=== PATIENT | female | born 1935 | race Caucasian/White ===

== ENCOUNTER 2016-06-04 08:39 | Day surgery (SDC) | payer MEDICARE, OTHER ==
[~2016-06-04] VITALS: Ht 162.6 cm; Wt 83.9 kg
--- NOTE | 2016-06-04 07:27 | PCM.HPANE ---
Patient Data Surgeon Admitting Provider: Attending Provider:Nash Romero MD Primary Care Physician:Melia Gavin ND Other Provider:[place] Anesthesia Reason for Visit Dysphagia Ht/WT & BMI Body Mass Index Allergies Coded Allergies: Influenza Virus Vaccines (Verified Allergy, Severe, SEVERE ARM SWELLING LASTING 1 MO., 04/28/15) Nitrate (Verified Allergy, Severe, NAUSEA, RASH, SOB, 04/28/15) barium sulfate (Verified Allergy, Severe, LIP SWELLS, 04/28/15) nitrofurantoin (Verified Allergy, Severe, NAUSEA, RASH, SOB, 04/28/15) pantoprazole sodium (Verified Allergy, Severe, Nausea, 04/28/15) acetaminophen (Verified Allergy, Intermediate, heart races, 04/28/15) lovastatin (Verified Allergy, Intermediate, dizziness, 04/28/15) oxymetazoline HCl (Verified Allergy, Intermediate, races heart, 04/28/15) pseudoephedrine sulfate (Verified Allergy, Intermediate, races heart, 04/28) Cephalosporins (Verified Allergy, Unknown, WAS TOLD TO STOP TAKING, UNK REACTION, 04/28/15) Quinolones (Verified Allergy, Unknown, WAS TOLD TO STOP TAKING, 04/28/15) amoxicillin (Verified Allergy, Unknown, Nausea,Vomiting,Diarrhea, 06/02/16) azithromycin (Verified Allergy, Unknown, 06/02/16) cimetidine (Verified Allergy, Unknown, 06/02/16) ciprofloxacin (Verified Allergy, Unknown, 06/02/16) erythromycin base (Verified Allergy, Unknown, 06/02/16) fenofibrate (Verified Allergy, Unknown, Dizziness, 06/02/16) levofloxacin (Verified Allergy, Unknown, 06/02/16) minocycline (Verified Allergy, Unknown, 06/02/16) niacin (Verified Allergy, Unknown, Dizziness, 06/02/16) omeprazole (Verified Allergy, Unknown, 06/02/16) oxymetazoline (Verified Allergy, Unknown, 06/02/16) oxytetracycline (Verified Allergy, Unknown, 06/02/16) ranitidine (Verified Allergy, Unknown, 06/02/16) tetracycline (Verified Allergy, Unknown, WAS TOLD TO STOP TAKING DOXY, ) tolterodine (Verified Allergy, Unknown, 06/02/16) Estrogens (Verified Adverse Reaction, Mild, PAIN IN TEMPLES, 04/28/15) erythromycin ethylsuccinate (Verified Adverse Reaction, Mild, SEV. GI UPSET, 04/28/15) hydrocodone (Verified Adverse Reaction, Mild, SEV. NAUSEA AND DIZZINESS, ) ibuprofen (Verified Adverse Reaction, Mild, RAPID HR, 04/28/15) lansoprazole (Verified Adverse Reaction, Mild, SEV. DIARRHEA, 04/28/15) oxycodone (Verified Adverse Reaction, Mild, SEV. NAUSEA AND DIZZINESS, ) sucralfate (Verified Adverse Reaction, Mild, RAPID HEART, 04/28/15) metronidazole (Verified Adverse Reaction, Unknown, DIARRHEA AND SEVERE RUBI , 04/28/15) DIARRHEA & SEVERE HEADACHE Uncoded Allergies: CIMETIDINE (Generic Allergy) (Allergy, Unknown, Y, 11/21/04) NAUSEA/RACING HEART FAMOTIDINE (Generic Allergy) (Allergy, Unknown, Y, 11/21/04) H-2 ANTAGONISTS (Ingr Allergy) (Allergy, Unknown, Y, 11/21/04) LATEX (Ingr Allergy) (Allergy, Unknown, Y, 11/21/04) SULFA (Allergy, Unknown, WAS TOLD TO STOP TAKING, 02/05/09) TO MANY TO LIST (Allergy, Unknown, 11/21/04) Past Anesthesia History Anesthesia History: Positive for:: Fam Anesthesia Reaction (SISTERS AND MOTHER GET VERY ILL), Denies:: Abnormal Airway, Anesthesia Reactions, Difficult Intubation, Fam Malignant Hypertherm, Malignant Hyperthermia Diabetes History Hx Diabetes?: No MRSA MRSA: No Medications Reported Medications [Phytoprofen] No Conflict Check2 Capsule PO DAILY 06/04/16 [Natrokinase] No Conflict Iajsb309 Mg PO DAILY PRN COAGULATION 06/04/16 Chromium Amino Acid Chelate (Chromium)400 Mcg Ldvsbk138 Mcg PO 06/04/16 [Blue Alo] No Conflict Check1-2 Capsule PO 06/04/16 Benzoca/Res/Aloe/Vit E/Vit A&D (Vagisil Cream)28 Gm Cream..g.28 Gm TP 06/04/16 Estriol 100 Gm Evouer824 Gm MC 06/04/16 [Gasalia] No Conflict Check2 Tablet PO 06/04/16 Bacillus Coagulans (Probiotic)10 Billion Cell Capsule.dr1 Each PO DAILY 06/02/16 Ascorbic Acid-Expunged Drug, Do Not Renew! (Vitamin C-Expunged Drug, Do Not Renew!)500 Mg Tablet1,000 Mg PO DAILY 01/10/13 Cyanocobalamin-Expunged Drug, Do Not Renew! (Vitamin Z-05-Ulgkdxfz Drug, Do Not Renew!)500 Mcg Tablet1,000 Mcg PO 2D 01/10/13 B.ani/L.aci/L.tyler/L.plan/L.jacqui (Probiotic Formula Capsule)1 Each Capsule1 Each PO NO SIG 01/10/13 Papain (Papaya)100 Mg Ylswms771 Mg PO DAILY 01/10/13 Ubidecarenone (Coenzyme Q10)100 Mg Kzjugt774 Mg PO DAILY 01/10/13 Celery Seed Oil 500 Ml Oil Ml UD 01/10/13 Calcium Carbonate/Mag Hydrox (Antacid Chewable Tablet)1 Each Tab.chew1 Each PO DAILY CALCIUM 1200MG / MAG 500MG 01/10/13 THYROID-Expunged Drug, Do Not Renew! 30 Mg Tab75 Mg PO DAILY 01/10/13 Red Yeast Rice 600 Mg Xzfzcr499 Mg PO BID 05/11/11 Ergocalciferol-Expunged Drug, Do Not Renew! (Vitamin D-Expunged Drug, Do Not Renew!)400 Unit Guzacbn984 Unit PO DAILY Ref 0 02/20/09 Multivitamins-Expunged Drug, Do Not Renew! 1 Each Tab.chew1 Each PO DAILYWM Ref 0 02/19/09 Folic Acid-Expunged Drug, Do Not Renew! 0.4 Mg Tablet0.4 Mg PO Every other day Ref 0 02/19/09 Discontinued Reported Medications [Estrogenic 2MG/Ml] No Conflict Check2 Mg UD 01/10/13 Chromium Picolinate 400 Mcg Gbcmll772 Mcg PO DAILY 05/11/11 [nattokinase] No Conflict Check72 Mg PO BID 01/11/13 Pramoxine Hcl-Expunged Drug, Do Not Renew! (Vagisil-Expunged Drug, Do Not Renew! )1 Each Towelette1 Each TP UD 01/10/13 [Paige Q2] No Conflict Check1 Cell DAILY 01/10/13 [Calcium Carb 150MG] No Conflict Check1,050 Mg PO DAILY 7 TABS (150MG EA) = 1050MG 01/10/13 [Vitamin B12] No Conflict Zyijh484 Mcg PO 2D Ref 0 02/19/09 History History of ENT Problems?: Yes HEENT History: Positive for:: Sinus Problem (frequent sore nose) Denies:: Abnormal Airway Cataracts Difficult Intubation Dysphagia Hearing Problem Hx of Heart Problems?: Yes Cardiovascular History: Positive for:: Chest Pain Edema (during day) Heart Murmur Denies:: AICD Atrial Fibrillation Cardiac Surgery Congestive Heart Failure Hypertension Irregular Heartbeat Pacemaker Thrombophlebitis Valvular Heart Disease Other Cardiac History: history of ablations for Afib. No ME Hx of Respiratory Problem?: Yes Respiratory History: Positive for:: Pneumonia (1989) Denies:: Asthma COPD Chest Surgery Cough Dyspnea Emphysema Hemoptysis Tuberculosis Hx Neurologic Problems?: Yes Neurological History: Positive for:: Dizziness Denies:: Alzheimer's Disease CVA Dementia Headaches Parkinson's Disease Seizures Hx of GI Problems?: Yes Gastrointestinal History: Positive for:: Gastroesphageal Reflux Heartburn Hiatal Hernia Rectal Bleeding Denies:: Cirrhosis Diverticulitis Gastrointestinal Bleeding Hepatitis Hx of Problems?: Yes Genitourinary History: Denies:: HX of Hemodialysis Kidney Stones Urinary Tract Infection HX of Peritoneal Dialysis: No Female Hx: Denies:: Currently Endometriosis Pelvic Inflammatory Problems with Breasts? Hx Musculoskeletal Problems?: Yes Musculoskeletal History: Positive for:: Back Injury (chronic back) Joint Replacement (left knee) Denies:: Musculoskeletal Trauma Hx of Psycho/Social Problems?: No Psycho Social History: Denies:: Anxiety Bipolar Disorder Hx Depression Hx Surgeries?: Yes (bladder removal, knees, abd. hyst, bursa removal right shoulder, hernia rep) Hx Any Other Health Problems?: No Other History: Positive for:: Cancer (bladder) Hospitalization Thyroid Disease Denies:: Endocrine Disease History Blood Transfusions: Positive for:: Blood Transfusions Denies:: Blood Transfuse Reaction Hx Diabetes: No Hx Alcohol Use: NoHx Substance Use: No Smoking Status: Former Smoker Have You Smoked inLast 12 mo: No Stop/Bang Risk Assessment Category Category 1A: Patient has history of documented sleep apnea, and HAS NOT received any narcotic, sedative or anesthesia administration during this stay. Category 1B: Patient has history of documented sleep apnea, and HAS received any narcotic , sedative or anesthesia administration during this stay Category 2: Patient has SUSPECTED Obstructive Sleep Apnea, and HAS received any narcotic , sedative or anesthesia administration during this stay. Category 3: Patient has SUSPECTED Obstructive Sleep Apnea and HAS NOT received narcotic, sedative or anesthesia administration during this stay. Category 4: Outpatient in Procedural Areas with known sleep apnea or who screen positive for High Risk via the STOP/BANG questionnaire. Exam Exam General Appearance: Alert, Oriented X3, Cooperative, No Acute Distress HEENT/AIRWAY: MP 2 Lungs: Clear to Auscultation, Normal Air Movement Heart: Exam Unremarkable, Regular Rate/Rhythm, No Murmurs/Rubs/Gallops Plan Impression Patient chart reviewed, patient interviewed and anesthestic plan with risks, benefits, and alternatives discussed, and informed consent obtained. ASA Physical Status: ASA2 Mod Systemic Disease Anesthetic Plan: MAC Bene/Risks/Altern/Consents: Yes HP Complete Prior to Induction: Yes Other vast number ofr allergies non anesthesia specific. No trouble with anesthetics in the past. Her sister and mother have had unspecified "difficulties" in the distant past Chalo Livingston MD Jun 04, 2016 07:27
[~2016-06-04 08:39] MED LIST: ASC500 PO; B.AN1CAP PO; BACI1CAP6 PO; CALC-846 PO; CHRO400T3 PO; CYAN500T PO; ERGO400C PO; FOLI0.4T2 PO; Lactated Ringer's 1,000 ML IV ONE; MULT-64 PO; PAPA100T PO; RED600TA PO; UBID100T7 PO; [UNRECOGNIZED DRUG - CODE]; [UNRECOGNIZED DRUG - CODE] PO; [UNRECOGNIZED DRUG - OTHER]
[2016-06-04] MEDS ORDERED: Propofol 10,000 mCg/mL 20 mL Inj ONE ×2 (08:40)
[2016-06-04] MEDS ORDERED: fentaNYL-PF 50 mCg/mL 2 mL Inj ONE (08:40)
[2016-06-04] MEDS ORDERED: ESTR100P26 EXT (09:10)
[2016-06-04] MEDS ORDERED: [UNRECOGNIZED DRUG - OTHER] PO (09:10)
[2016-06-04] MEDS ORDERED: [UNRECOGNIZED DRUG - OTHER] PO (09:10)
[2016-06-04] MEDS ORDERED: BENZ28CR2 TP (09:10)
[2016-06-04] MEDS ORDERED: CHRO400T10 PO (09:10)
[2016-06-04] MEDS ORDERED: [UNRECOGNIZED DRUG - OTHER] PO (09:10)
[2016-06-04] MEDS ORDERED: [UNRECOGNIZED DRUG - OTHER] PO (09:10)
[2016-06-04 09:26] VITALS: BP 161/73; PULSE 68; RESP 14; O2SAT 98
[2016-06-04] MEDS ORDERED: Lactated Ringer's 1,000 ML IV SCH (10:12)
--- NOTE | 2016-06-04 10:12 | PCM.ANEP1 ---
Post Anesthesia Phase 1 PACU Phase 1 Assessment Vital Signs Vital Signs Date Time Temp Pulse Resp B/P Pulse Ox O2 Delivery O2 Flow Rate FiO2 06/04/16 09:26 68 14 161/73 98 Room Air Anesthetic Administered: MAC Level of Alertness: Awake, talking CSAAS's with Equal Strength: Yes Pain: No Nausea or Vomiting: No Oxygen Delivery: Nasal Cannula Lungs: Clear to Auscultation, Normal Air Movement Chalo Livingston MD Jun 04, 2016 10:12
--- NOTE | 2016-06-04 10:14 | PCM.ENDEGD ---
EGD Date of Service: Jun 04, 2016 Physician Nash Romero MD Pre Procedure Diagnosis: Dysphagia Post Procedure Dx & Findings: White nodule Procedure Esophagogastroduodenoscopy PROCEDURE IN DETAIL: The patient was placed in left lateral decubitus position. Bite block was placed. Scope lubricated, placed in posterior pharynx, passed through the cricopharyngeus and esophagus, slowly advanced the entire length of the gastric pouch, pylorus was identified, scope passed through the pylorus and descending portion of duodenum, withdrawn in the antrum, retroflexed upon itself for view of fundus and cardia. Scope was then withdrawn through the oropharynx. Esophagus appeared normal with normal mucosa without any ulcer mass or erosion. Z line intact. Z line 38 cm Stomach shows normal rugae folds and mucosa without any ulcer erosion mass. Retroflexion was done. Stomach was easily inflatable and deflated using air. Cardia fundus body antrum and pylorus were visualized. Scope further advanced to the distal duodenum. The duodenum overall appeared normal with normal villous structures and normal rugae folds. However there are several maybe 2-3 mm whitish soft nodule. This was biopsied. Impression 2-3 millimeter whitish nodule status post biopsy. Recommendation Follow up in GI clinic Presedation Assessment Risks and Benefits Informed consent was obtained from the patient after all risks and benefits including but not limited to drug reaction, infection, pain, bleeding, perforation, as well as alternatives were discussed. Patient monitoring Continuous pulse oximetry, cardiac monitoring, blood pressure monitoring, IV access, and oxygen at 2L per nasal cannula. Complications There were no periprocedural complications identified. Post Procedure Plan Post Procedure Recommendations 1. Restrict activities today. 2. Resume normal activities in the morning. 3. Resume medications. 4. GERD behavioral modification: - Avoid fatty, acidic, spicy, large meals - Do not lie down after meals - Do not eat or drink anything for at least 2 1/2 hours before going to bed at night - Discontinue tobacco and alcohol - Decrease or avoid caffeine - Avoid chocolate and mints - Decrease weight - Avoid aspirin and non steroidal anti-inflammatory agents (NSAID) such as Aleve, Advil, Mobic, Naproxen, Ibuprofen, etc 5. Add proton pump inhibitor. Take 30 minutes before 1st meal of the day. 6. Patient informed of normal post procedure side effects as bloating, drowsiness, blood streaking in the stool 7. If gastric biopsy reveal H.pylori, continue with appropriate treatment 8. If small bowel biopsy reveals celiac, continue with appropriate treatment 9. Please don't hesitate to call me with any questions Nash Romero MD Jun 04, 2016 10:14
[2016-06-04] MEDS ORDERED: MetoCLOpramide 5 mg/mL 2 mL Inj IVPUSH PRN (10:15)
[2016-06-04] MEDS ORDERED: Ondansetron 2 mg/mL 2 mL Inj IVPUSH PRN (10:15)
[2016-06-04 10:18] VITALS: BP 121/52; PULSE 70; RESP 10; O2SAT 93
[2016-06-04 10:25] VITALS: BP 121/55; PULSE 75; RESP 16; O2SAT 95
[2016-06-04 10:36] VITALS: BP 140/79; PULSE 69; RESP 14; O2SAT 97
--- NOTE | 2016-06-04 10:36 | PCM.ANEP2 ---
Post Anesthesia Evaluation ASA/CMS Post Anesthesia VS in Patient's Normal Range?: Yes Resp Stable; Airway Patent?: Yes CV Function & Hydration Stable: Yes Mental Status Recovered?: Yes Pain control Satisfactory?: Yes N/V Control Satisfactory?: Yes Chalo Livingston MD Jun 04, 2016 10:36
--- NOTE | 2016-06-05 14:34 | PATH ---
SURGICAL PATHOLOGY Attending Physician:Nash Romero M.D. CASE STATUS: Signed Out PATIENT NAME: PARVIN GOVEA PID: [id number] : 1935 DATE COLLECTED:06/04/2016 15:44 SPECIMEN: Duodenum, Biopsy CLINICAL HISTORY: 1).DUODENAL BIOPSY FINAL DIAGNOSIS: 1.DUODENUM BIOPSY: FOCAL MUCOSAL LYMPHANGIECTASIA. Normal delicate mucosal villi present. Negative for significant inflammation, dysplasia and malignancy. ICD10 code I89.0 GROSS DESCRIPTION: The specimen is received in one formalin filled container labeled with the patient's name, sublabeled "duodenal" and consists of a 0.3 x 0.3 x 0.3 CM portion of tissue which is entirely submitted in one cassette. 06/04/2016 DAC MICRO DESCRIPTION: See diagnosis. ICD-9 CODES: CPT CODES: 1: 32942 Electronically Signed Out William Dillard MD [facility] Pathology [facility] [address], [place] [address] Technical component performed at [facility], [facility] [address], [place], [address]
== END 2016-06-04 23:59 | disposition home or self-care (01) ==
LOC: END 08:39
PROVIDERS: ATTEND Internal Medicine
DX: I89.0 Lymphedema, not elsewhere classified (principal); R13.10 Dysphagia, unspecified; K21.9 Gastro-esophageal reflux disease without esophagitis; K59.00 Constipation, unspecified; I73.9 Peripheral vascular disease, unspecified; I10 Essential (primary) hypertension; E78.5 Hyperlipidemia, unspecified; E03.9 Hypothyroidism, unspecified; M35.00 Sjogren syndrome, unspecified; K57.30 Diverticulosis of large intestine without perforation or abscess without bleeding; Z85.51 Personal history of malignant neoplasm of bladder; Z87.440 Personal history of urinary (tract) infections; Z79.890 Hormone replacement therapy; Z87.891 Personal history of nicotine dependence
CPT/HCPCS: 43239; 88305; J2250; J3010; J7120

== ENCOUNTER 2016-08-13 15:19 | Observation (INO) | payer MEDICARE, OTHER ==
[~2016-08-13] VITALS: Ht 163.8 cm; Wt 85.0 kg
[2016-08-13] VITALS (11 sets, daily range): BP systolic 134–199; BP diastolic 56–96; PULSE 56–98; RESP 15–22; O2SAT 97–100
[~2016-08-13 15:19] MED LIST changes: +BENZ28CR2 TP; +CHRO400T10 PO; -CHRO400T3 PO; +ESTR100P26 EXT; -Lactated Ringer's 1,000 ML IV ONE; -[UNRECOGNIZED DRUG - OTHER]; +[UNRECOGNIZED DRUG - OTHER] PO; +[UNRECOGNIZED DRUG - OTHER] PO; +[UNRECOGNIZED DRUG - OTHER] PO; +[UNRECOGNIZED DRUG - OTHER] PO
--- NOTE | 2016-08-13 16:13 | DRSVH ---
PROCEDURE: X-RAY CHEST, TWO VIEWS ([id number]) INDICATIONS: chest pain TECHNIQUE: 2 views of the chest were acquired. COMPARISON: [facility], CR, CHEST 2VW, 07/08/2012, 14:09. FINDINGS: Surgical changes and devices: None. Lungs and pleura: No pleural effusions or pneumothorax. Lungs are clear. Mediastinum: Mediastinal contours are normal. Heart size is normal. Bones and chest wall: No suspicious bony abnormalities. Soft tissues appear unremarkable. IMPRESSION: No acute cardiopulmonary disease process. Dictated by: Sirena Brar MD, PhD on 08/13/2016 at 16:11 Approved by: Sirena Brar MD, PhD on 08/13/2016 at 16:12
--- NOTE | 2016-08-13 16:33 | ED.REPORT ---
HPI-General Illness Date of Service August 13, 2016 ED Provider: Milton Carter MD Pt is a 81 year old female with a history of SVT s/p ablations, colitis, IBS, duodenal ulcer and GERD presents to the ED with chest discomfort that began one week ago. Associated symptoms include radiating pain to her jaw and left arm, heart palpitations, fatigue, weakness, SOB, nausea and occasional flatulence. She describes the pain as a pressure that is exacerbated by deep breath moves throughout her chest wall. The episodes of discomfort last a few minutes at a time. The pain is occasionally relieved by eating. Patient reports similar symptoms previously. Dr. Szymanski recently performed an endoscopy that revealed an abnormality. She denies any recent episodes of emesis. Nursing Notes Stated Complaint: CHEST PAIN AND HEART FLUTTER Chief Complaint: Chest Pain Nursing Notes Reviewed: Yes Allergies: Coded Allergies: Influenza Virus Vaccines (Verified Allergy, Severe, SEVERE ARM SWELLING LASTING 1 MO., 08/13/16) Nitrate (Verified Allergy, Severe, NAUSEA, RASH, SOB, 08/13/16) barium sulfate (Verified Allergy, Severe, LIP SWELLS, 08/13/16) levofloxacin (Verified Allergy, Severe, c-dif, tendonitis, 08/13/16) nitrofurantoin (Verified Allergy, Severe, NAUSEA, RASH, SOB, 08/13/16) pantoprazole sodium (Verified Allergy, Severe, Nausea, abdominal pain, rash, dizziness, chills, 08/13/16) cimetidine (Verified Allergy, Intermediate, racing heart, nausea, 08/13/16) diltiazem (Verified Allergy, Intermediate, 08/13/16) doxycycline (Verified Allergy, Intermediate, Nausea, palpitations, abdominal pain, chills, 08/13/16) estradiol (Verified Allergy, Intermediate, local reaction, 08/13/16) lovastatin (Verified Allergy, Intermediate, dizziness, 08/13/16) oxymetazoline HCl (Verified Allergy, Intermediate, races heart, 08/13/16) oxytetracycline (Verified Allergy, Intermediate, worsened lesion, 08/13/16) pseudoephedrine sulfate (Verified Allergy, Intermediate, races heart, ) ranitidine (Verified Allergy, Intermediate, nausea, racing heart, 08/13/16) simvastatin (Verified Allergy, Intermediate, dizziness, diarrhea, weakness , sweating, chills, 08/13/16) tolterodine (Verified Allergy, Intermediate, blurred vision, 08/13/16) Penicillins (Verified Allergy, Mild, 1950's anaphylaxis, able to tolerate augmentin, 08/13/16) Cephalosporins (Verified Allergy, Unknown, can take cefalexin, 08/13/16) palpitations Quinolones (Verified Allergy, Unknown, WAS TOLD TO STOP TAKING, 08/13/16) Sulfa (Sulfonamide Antibiotics) (Verified Allergy, Unknown, 08/13/16) amoxicillin (Verified Allergy, Unknown, Nausea,Vomiting,Diarrhea, 08/13/16) azithromycin (Verified Allergy, Unknown, palpitations, h/a, nausea, weakness, 08/13/16) ciprofloxacin (Verified Allergy, Unknown, Rash, 08/13/16) fenofibrate (Verified Allergy, Unknown, Dizziness, 08/13/16) niacin (Verified Allergy, Unknown, Dizziness, diarrhea, sweating, chills, 08/13/16) omeprazole (Verified Allergy, Unknown, Nausea, racing heart, 08/13/16) oxymetazoline (Verified Allergy, Unknown, racing heart, 08/13/16) tetracycline (Verified Allergy, Unknown, WAS TOLD TO STOP TAKING DOXY, ) Estrogens (Verified Adverse Reaction, Mild, PAIN IN TEMPLES, 08/13/16) erythromycin ethylsuccinate (Verified Adverse Reaction, Mild, SEV. GI UPSET, 08/13/16) hydrocodone (Verified Adverse Reaction, Mild, SEV. NAUSEA AND DIZZINESS, ) ibuprofen (Verified Adverse Reaction, Mild, RAPID HR, 08/13/16) lansoprazole (Verified Adverse Reaction, Mild, SEV. DIARRHEA, 08/13/16) oxycodone (Verified Adverse Reaction, Mild, SEV. NAUSEA AND DIZZINESS, 08/13) sucralfate (Verified Adverse Reaction, Mild, RAPID HEART, 08/13/16) metronidazole (Verified Adverse Reaction, Unknown, DIARRHEA AND SEVERE RUBI , 08/13/16) DIARRHEA & SEVERE HEADACHE minocycline (Verified Adverse Reaction, Unknown, tinnitus, nightmares, 08/13) Uncoded Allergies: CIMETIDINE (Generic Allergy) (Allergy, Unknown, Y, 11/21/04) NAUSEA/RACING HEART FAMOTIDINE (Generic Allergy) (Allergy, Unknown, Y, 11/21/04) H-2 ANTAGONISTS (Ingr Allergy) (Allergy, Unknown, Y, 11/21/04) LATEX (Ingr Allergy) (Allergy, Unknown, Y, 11/21/04) SULFA (Allergy, Unknown, WAS TOLD TO STOP TAKING, 02/05/09) TO MANY TO LIST (Allergy, Unknown, 11/21/04) Scheduled ([estriol/estrodiol]) 0.5 ML EXT DAILY ([nattokinase]) 236 MG PO DAILY Ascorbic Acid (Vitamin C) 1,000 Mg Tab.chew 1,000 MG PO DAILY Bacillus Coagulans (Probiotic) 10 Billion Cell Capsule.dr 1 EACH PO DAILY Calcium Carbonate (Calcium) 600 Mg Tablet 750 MG PO DAILY Cholecalciferol (Vitamin D3) (Vitamin D3) 2,000 Unit Capsule 2,000 UNIT PO DAILY Cholecalciferol (Vitamin D3) (Vitamin D3) 4,000 Unit Capsule 4,000 UNIT PO DAILY Chromium Picolinate (Chromium Picolinate) 200 Mcg Tablet 200 MCG PO DAILY Cyanocobalamin (Vitamin B-12) (Vitamin B-12) 1,000 Mcg Tablet 1,000 MCG PO Q2DAY Estriol (Estriol) 100 Gm Powder 1,000 GM EXT 2xweekly compound in cream Multivitamin (Once Daily) 1 Each Tablet 1 EACH PO DAILY Thyroid,Pork (Thyroid) 25 Gm Powder 75 MG PO DAILY Ubidecarenone/Vit E Acetate (Co Q-10 100 mg Softgel) 1 Each Capsule 1 EACH PO DAILY Scheduled PRN Benzoca/Res/Aloe/Vit E/Vit A&D (Vagisil Cream) 28 Gm Cream..g. 1 APPLIC EXT DIRECTED PRN PRN For Itching Miscellaneous Medications Benzoca/Res/Aloe/Vit E/Vit A&D (Vagisil Cream) 28 Gm Cream..g. 28 GM TP Chromium Amino Acid Chelate (Chromium) 400 Mcg Tablet 200 MCG PO General Time Seen by MD: 16:24 Chief Complaint Chest pain Hx Obtained From: Patient Arrived By: Walk-in Sudden in Onset?: No Onset Occurred: 1 week ago Symptom Duration: Intermittent Location: : Chest Quality: Pressure Radiation: : Arm left: Jaw Severity: Current: Mild Severity: Maximum: Moderate Associated with: Reports: Chest pain, Nausea, Weakness, Denies: Vomiting Pertinent Negative: Pt denies other symptoms Recent Healthcare: No recent hospitalization, Recent doctor visit Past Medical History Past Medical History colitis, duodenal ulcer, IBS, hiatal hernia, GERD, arthritis, chronic back pain, bladder cancer (bladder removed) Past Surgical History ostomy, L knee replacement, bladder removal, knees, hysterectomy, bursa removal R shoulder, hernia repair Smoking History Former Smoker Social History Other Social History: Good social support, Local resident Ambulatory Status Independent Review of Systems flatulence Full Review of Systems Constitutional: Reports: Fatigue, Weakness - generalized Respiratory: Reports: Shortness of breath Cardiovascular: Reports: Chest pain, Palpitations GI: Reports: Nausea, Denies: Vomiting Complete sys rev & neg: except as marked. Physical Exam Vital Signs Vital Signs Date Time Temp Pulse Resp B/P Pulse Ox O2 Delivery O2 Flow Rate FiO2 08/13/16 19:50 70 15 150/96 100 Nasal Cannula 2 08/13/16 18:34 77 22 148/76 100 Room Air 08/13/16 17:24 56 16 134/89 100 08/13/16 15:24 36.2 98 16 187/91 98 Initial VS: Reviewed Head / Eyes: Atraumatic, Normocephalic, PERRL Neck: Supple, Non-tender, Full range of motion Extremities: Vascular intact, Neuro intact, No swelling (No calf swelling) , No tenderness (No calf tenderness) Skin: Warm, Dry, No cyanosis Neurologic: Alert, Oriented, Nonfocal Psychiatric: Mood/affect normal, Behavior normal, Normal thought content ENT: Atraumatic, Airway patent, Mucous membranes moist, Pharynx NL Respiratory / Chest: Atraumatic, Breath sounds NL, Breath sounds = bilat, No respiratory distress Cardiovascular: Heart rate NL, Regular rhythm, Heart sounds NL, No gallop, No murmurs, No rubs Abdomen: Atraumatic, Soft, No guarding, No rebound Tenderness/Guarding/Rebound: Positive: Tender epigastric ABDOMEN: No rigidity Interpretation & Diagnostics Normal KARTHIK scan in 2011 Lab Results Interpretation Result Diagram: 08/13/16 1625 08/13/16 1625 Test 08/13/16 16:25 White Blood Count 6.9th/mm3 (3.8-10.1) Red Blood Count 3.89mil/mm3 (3.90-5.20) Hemoglobin 12.2g/dL (12.0-15.6) Hematocrit 37.8% (35.0-46.0) Mean Corpuscular Volume 97.2fL (81-100) Mean Corpuscular Hemoglobin 31.4pg (27.0-35.0) Mean Corpuscular Hemoglobin Concent 32.3% (32.0-37.0) Red Cell Distribution Width 13.3% (12.3-15.4) Platelet Count 278bil/L (150-400) Neutrophils (%) (Auto) 71.8% (40-74) Lymphocytes (%) (Auto) 18.8% (14-46) Monocytes (%) (Auto) 7.6% (4-12) Eosinophils (%) (Auto) 1.3% (0-5) Basophils (%) (Auto) 0.4% (0-3) Hold Purple Top Tube Received (Received) Hold Blue Top Tube Received (Received) Sodium Level 141mEq/L (134-144) Potassium Level 3.7mEq/L (3.5-5.2) Chloride Level 101mEq/L (97-108) Carbon Dioxide Level 25mmol/L (18-29) Blood Urea Nitrogen 18mg/dL (8-27) Creatinine 0.77mg/dL (0.57-1.00) Estimat Glomerular Filtration Rate 104mL/min (>59) Glucose Level 99mg/dL (60-99) Calcium Level 9.8mg/dL (8.5-10.1) Magnesium Level 2.3mg/dL (1.6-2.6) Total Bilirubin 0.5mg/dL (0.0-1.2) Aspartate Amino Transf (AST/SGOT) 19U/L (0-50) Alanine Aminotransferase (ALT/SGPT) 16U/L (0-32) Alkaline Phosphatase 71U/L (25-165) Troponin T < 0.010ug/L (0.0-0.011) Total Protein 7.2g/dL (6.4-8.4) Albumin 4.2g/dL (3.4-5.0) Lipase 29U/L (13-60) Hold Bradford Top Tube Received (Received) ECG Interpretation ECG Interpretation: EKG sinus rhythm 72 Left bundle branch block No acute ST segment changes Compared 12/07 2015 Time: 16:50 Interpreted by: ED physician X-Ray Chest Interpretation Chest Xray Interpretation: IMPRESSION: No acute cardiopulmonary disease process. Dictated by: Sirena Brar MD, PhD on 08/13/2016 at 16:11 Interpretation / Wet Read by: Interpret - Radiologist Re-Eval/Medical Decision Med Decision/Clinical Course The patient is a 81-year-old female who presents to emergency department with 1 week of vague intermittent chest pain that seems to calm and go without any apparent pattern. It sometimes seems to be relieved by eating though other times seems unrelated to this. The patient is concerned for cardiac causes. Upon arrival she is afebrile with stable vital signs and in no apparent distress. The patient was treated with a GI cocktail as well as 324 mg of aspirin. Her pain seems to continue to come and go without any significant relief. EKG sinus rhythm [address] segment changes Compared 12/07 2015 CXR: Obtained, reviewed and interpreted by myself shows no evidence of infiltrates, effusions or pneumothorax. Cardiac and mediastinal silhouette normal. No bony or soft tissue abnormalities. Labs CBC unremarkable CMP unremarkable Troponin negative At this time the cause of the patient's chest pain remains unclear. The overwhelming clinical picture seems to support GI etiology such as peptic ulcer disease or gastritis however her pain is unrelieved by GI cocktail. Initial workup for acute coronary syndrome is reassuring however cannot definitively rule out that this is reflective of underlying anginal symptoms. I discussed this with the patient and reviewed options including expedited outpatient workup and follow-up with primary care physician versus admission to the hospital for serial troponins and additional cardiac risk stratification. I see that she did have a chemical stress test in 2011 though I do not see that she has more recently undergone cardiac workup. The patient prefers to be admitted to the hospital as she states she lives alone and is quite worried about the chest pain that she has been experiencing. Therefore the patient was discussed with the admitting hospitalist and admitted in stable condition. Time of Eval: 18:13 Patient Status: Condition improved Re-Evaluation/Progress Note: Patient's symptoms are still present but imporved. She is given the option to discharge with follow up or admit for further workup. All questions are addressed. She would like to be admitted. Consultation : Referral / Consult Name: Darian Xiong MD Consulted With: Hospitalist Call Returned at: 18:35 Environmental Services Lead: Will see patient, Agrees with eval, Agrees with plan, Accepts admit Counseled Regarding: Diagnosis, Lab results, Need for admission Discharge & Departure Primary Impression: Chest pain Chest pain type: unspecified Qualified Code: R07.9 - Chest pain, unspecified Additional Impressions: Gastritis Gastritis type: unspecified gastritis Chronicity: unspecified Gastritis bleeding: presence of bleeding unspecified Qualified Code: K29.70 - Gastritis , unspecified, without bleeding Epigastric pain Jaw pain Disposition: ADMITTED TO HOSPITAL Discharge Condition All VS Reviewed: Yes Condition: Improved Referrals: Melia Gavin ND (PCP) Scribe Attestation Portions of this note were transcribed by Sarika Lara. I, Dr. Carter personally performed the history, physical exam and medical decision-making; I reviewed and confirmed the accuracy of the information in the transcribed note. Signed by: Jemima Gomez, 08/13/16 [id number]. copies to: Melia Gavin ND, Beck O MD August 13, 2016 16:33 SARIKA LARA August 13, 2016 16:53
[2016-08-13] MEDS ORDERED: LidocaineVisc 2%:Antacid 1:1 10 mL Syringe PO ONE (16:55)
[2016-08-13 17:37] LABS: BASOPHILS % (AUTO) 0.4 % (0-3); EOSINOPHILS % (AUTO) 1.3 % (0-5); MONOCYTES % (AUTO) 7.6 % (4-12); Mean Corpuscular Hemoglobin 31.4 pg (27.0-35.0); Mean Corpuscular Volume 97.2 fL (81-100); NEUTROPHILS % (AUTO) 71.8 % (40-74); Platelet Count 278 bil/L (150-400)
[2016-08-13 17:47] LABS: TROPONIN T < 0.010 ug/L (0.0-0.011)
[2016-08-13 17:57] LABS: Magnesium 2.3 mg/dL (1.6-2.6)
[2016-08-13] MEDS ORDERED: Alum-Mag Hydrox-Simeth 30 mL Suspension PO PRN ×2 (18:20→19:40)
[2016-08-13] MEDS ORDERED: Ondansetron 2 mg/mL 2 mL Inj IVPUSH PRN ×2 (18:20→19:40)
[2016-08-13] MEDS ORDERED: Polyethylene Glycol (PEG) 17 Gm Powder PO PRN (19:40)
[2016-08-13] MEDS ORDERED: Senna-Docusate 8.6-50 mg Tablet PO PRN (19:40)
[2016-08-13] MEDS ORDERED: THYR25PO4 PO (20:00)
[2016-08-13] MEDS ORDERED: BENZ28CR2 EXT (20:00)
[2016-08-13] MEDS ORDERED: UBID1CAP52 PO (20:00)
[2016-08-13] MEDS ORDERED: ESTRODIOL EXT (20:00)
[2016-08-13] MEDS ORDERED: ESTRIOL EXT (20:00)
[2016-08-13] MEDS ORDERED: CYAN10008 PO (20:00)
[2016-08-13] MEDS ORDERED: nattokinase PO (20:03)
[2016-08-13] MEDS ORDERED: ASCO100089 PO (20:03)
[2016-08-13] MEDS ORDERED: CHRO200T2 PO (20:03)
[2016-08-13] MEDS ORDERED: CHOL200047 PO (20:03)
[2016-08-13] MEDS ORDERED: MULT-666 PO (20:03)
[2016-08-13] MEDS ORDERED: CALC600T12 PO (20:03)
[2016-08-13] MEDS ORDERED: CHOL40003 PO (20:03)
[2016-08-13 20:04] LABS: D-Dimer < 0.50 mg/L FEU (<0.50)
[2016-08-13] MEDS ORDERED: ACET325C PO (20:06)
[2016-08-13] MEDS ORDERED: RED600CA2 PO (20:06)
[2016-08-13] MEDS ORDERED: [UNRECOGNIZED DRUG - CODE] PO (20:06)
[2016-08-13] MEDS ORDERED: FOLI0.4T2 PO (20:06)
[2016-08-13] MEDS ORDERED: [UNRECOGNIZED DRUG - OTHER] PO (20:06)
[2016-08-13] MEDS ORDERED: CELERY SEED EXTRACT PO (20:06)
--- NOTE | 2016-08-13 20:06 | PCM.HPMED ---
Subjective Date of Service August 13, 2016 Primary Provider: Admitting Physician: Primary Care Physician: Melia Gavin ND Attending Physician: Chief Complaint: chest pain History of Present Illness: Pleasant 81-year-old female with history of SVT status post ablations, left bundle branch block, hypertension, hypothyroidism, bladder cancer status post cystectomy, and lymphangiectasia who presented to the ED with chest discomfort that began gradually 1 week ago. Location mid sternal, pressure like and mild intensity. She denies any triggers and reports associated jaw pain, palpitations, fatigue, and occasional shortness of breath. She reports she will get this chest pressure occasionally with deep inhalation, it will last a few minutes and then resolve. She denies any strenuous activity, denies any chest pain with yardwork, but reports occasional shortness of breath. She currently lives by herself at home and is somewhat sedentary. She denies any new medication changes, her PCP as KATHI Desai. She is currently on a naturopathic formulation of estrogen supplementation. She denies any recent illnesses,, fever, cough, or urinary symptoms. She endorses constipation. She is currently undergoing investigation with GI for lymphangiectasia. In the ER her vitals were temperature 36.2, pulse of 98, respiratory rate of 16 , initial blood pressure 187/91 which improved to the 150s systolic range, she was saturating at 98% room air. Initial CBC and CMP were unremarkable. Initial troponin was needed Initial EKG showed sinus rhythm with rate of 72 and a left bundle branch block, which is unchanged from previous EKG. Review of Systems: 12 point review of systems negative except as stated in history of present illness Allergies Coded Allergies: Influenza Virus Vaccines (Verified Allergy, Severe, SEVERE ARM SWELLING LASTING 1 MO., 08/13/16) Nitrate (Verified Allergy, Severe, NAUSEA, RASH, SOB, 08/13/16) barium sulfate (Verified Allergy, Severe, LIP SWELLS, 08/13/16) levofloxacin (Verified Allergy, Severe, c-dif, tendonitis, 08/13/16) nitrofurantoin (Verified Allergy, Severe, NAUSEA, RASH, SOB, 08/13/16) pantoprazole sodium (Verified Allergy, Severe, Nausea, abdominal pain, rash, dizziness, chills, 08/13/16) cimetidine (Verified Allergy, Intermediate, racing heart, nausea, 08/13/16) diltiazem (Verified Allergy, Intermediate, 08/13/16) doxycycline (Verified Allergy, Intermediate, Nausea, palpitations, abdominal pain, chills, 08/13/16) estradiol (Verified Allergy, Intermediate, local reaction, 08/13/16) lovastatin (Verified Allergy, Intermediate, dizziness, 08/13/16) oxymetazoline HCl (Verified Allergy, Intermediate, races heart, 08/13/16) oxytetracycline (Verified Allergy, Intermediate, worsened lesion, 08/13/16) pseudoephedrine sulfate (Verified Allergy, Intermediate, races heart, ) ranitidine (Verified Allergy, Intermediate, nausea, racing heart, 08/13/16) simvastatin (Verified Allergy, Intermediate, dizziness, diarrhea, weakness , sweating, chills, 08/13/16) tolterodine (Verified Allergy, Intermediate, blurred vision, 08/13/16) Penicillins (Verified Allergy, Mild, 1950's anaphylaxis, able to tolerate augmentin, 08/13/16) Cephalosporins (Verified Allergy, Unknown, can take cefalexin, 08/13/16) palpitations Quinolones (Verified Allergy, Unknown, WAS TOLD TO STOP TAKING, 08/13/16) Sulfa (Sulfonamide Antibiotics) (Verified Allergy, Unknown, 08/13/16) amoxicillin (Verified Allergy, Unknown, Nausea,Vomiting,Diarrhea, 08/13/16) azithromycin (Verified Allergy, Unknown, palpitations, h/a, nausea, weakness, 08/13/16) ciprofloxacin (Verified Allergy, Unknown, Rash, 08/13/16) fenofibrate (Verified Allergy, Unknown, Dizziness, 08/13/16) niacin (Verified Allergy, Unknown, Dizziness, diarrhea, sweating, chills, 08/13/16) omeprazole (Verified Allergy, Unknown, Nausea, racing heart, 08/13/16) oxymetazoline (Verified Allergy, Unknown, racing heart, 08/13/16) tetracycline (Verified Allergy, Unknown, WAS TOLD TO STOP TAKING DOXY, ) Estrogens (Verified Adverse Reaction, Mild, PAIN IN TEMPLES, 08/13/16) erythromycin ethylsuccinate (Verified Adverse Reaction, Mild, SEV. GI UPSET, 08/13/16) hydrocodone (Verified Adverse Reaction, Mild, SEV. NAUSEA AND DIZZINESS, ) ibuprofen (Verified Adverse Reaction, Mild, RAPID HR, 08/13/16) lansoprazole (Verified Adverse Reaction, Mild, SEV. DIARRHEA, 08/13/16) oxycodone (Verified Adverse Reaction, Mild, SEV. NAUSEA AND DIZZINESS, 08/13) sucralfate (Verified Adverse Reaction, Mild, RAPID HEART, 08/13/16) metronidazole (Verified Adverse Reaction, Unknown, DIARRHEA AND SEVERE RUBI , 08/13/16) DIARRHEA & SEVERE HEADACHE minocycline (Verified Adverse Reaction, Unknown, tinnitus, nightmares, 08/13) Uncoded Allergies: CIMETIDINE (Generic Allergy) (Allergy, Unknown, Y, 11/21/04) NAUSEA/RACING HEART FAMOTIDINE (Generic Allergy) (Allergy, Unknown, Y, 11/21/04) H-2 ANTAGONISTS (Ingr Allergy) (Allergy, Unknown, Y, 11/21/04) LATEX (Ingr Allergy) (Allergy, Unknown, Y, 11/21/04) SULFA (Allergy, Unknown, WAS TOLD TO STOP TAKING, 02/05/09) TO MANY TO LIST (Allergy, Unknown, 11/21/04) Home Medications From [employer] Chromium 2 g daily CoQ10 Estrogenic 2mg/ml as directed Probiotic Red yeast rice Vitamin C and vitamin D PMH colitis duodenal ulcer, IBS, hiatal hernia, GERD, arthritis, chronic back pain, 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 Surgical History RLQ ostomy L knee replacement, Cystectomy for bladder cancer hysterectomy bursa removal R shoulder, hernia repair Family History Extensive family history of coronary artery disease Social History Hx Alcohol Use: No Hx Substance Use: No Hx Tobacco Use: No Smoking Status: Former Smoker Living Arrangement: Alone Exam Vital Signs Vital Sign - Last Date Time Temp Pulse Resp B/P Pulse Ox O2 Delivery O2 Flow Rate FiO2 08/13/16 19:50 70 15 150/96 100 Nasal Cannula 2 08/13/16 15:24 36.2 Exam General: Well-developed elderly female who appears in no acute distress, alert and oriented 3 HEENT: PERRLA, EOMI, sclerae anicteric, oropharynx moist and pink Neck: Soft, nontender, no JVD noted CV: Regular rate and rhythm with soft systolic murmur, peripheral pulses intact and equal Respiratory: CTA B, no wheezing or rhonchi, normal respiratory effort Abdomen: Ostomy bag draining clear yellow urine at right lower quadrant, soft, nondistended, mildly tender to palpation left periumbilical region, no rash noted, decreased bowel sounds MSK: Muscle strength grossly intact and equal, no swollen or tender joints, no peripheral edema or clubbing noted Neuro: Grossly intact, no focal weakness, face symmetric Skin: Warm, dry, intact Psych: Appropriate mood and affect, linear thought process, speaks full fluent sentences Lab and Diagnostics Result Diagram: 08/13/16 1625 08/13/16 162 X-Rays, CTs and MRIs PROCEDURE: X-RAY CHEST, TWO VIEWS ([id number]) IMPRESSION: No acute cardiopulmonary disease process. 12-lead ECG Sinus rhythm at rate of 72, left bundle branch block, no ST changes, unchanged from previous EKG, read by ED provider Assessment & Plan 81-year-old female with history of SVT status post ablations, left bundle branch block, hypertension, hypothyroidism, bladder cancer status post cystectomy, and lymphangiectasia who presented to the ED with intermittent chest discomfort that began gradually 1 week ago. Acute Chest pain, present on admission Patient presents with atypical chest pain and intermittent shortness of breath. She does have an interesting cardiac history including SVT status post ablation and a left bundle branch block. She is currently not any medications to control her hypertension and hyperlipidemia. She is also on estrogen supplementation. Her EKG and initial labs were reassuring. DDX includes unstable angina, pulmonary emboli, recurrence of SVT, GI related pain, thyroid related. Will obtain d-dimer and trend Troponins Echo complete tomorrow Likely pharm stress test tomorrow, patient is too deconditioned to run she reports. Placed on telemetry for CV monitoring Essential hypertension, POA Patient's blood pressure has been labile since admission. Not on any antihypertensive Will discuss antihypertensive therapy with patient in the AM. Awaiting Med Rec Hyperlipidemia, POA Patient has a history of hyperlipidemia for which she manages with natural medications Check fasting lipid Hypothyroidism, POA Awaiting Med Rec. We will check TSH and free T4. History of bladder cancer status post cystectomy with ileal conduit, POA Ostomy right lower quadrant, C/D/I Will check UA for excessive protein loss Constipation, POA Reports hard stool with decreased BMS in the past few weeks. Will recommend Miralax daily Tylenol prn pain/fever Zofran prn nausea CODE STATUS: After discussing thoroughly with patient she would like to be DO NOT RESUSCITATE/DO NOT INTUBATE Disposition: Patient is admitted under observation status with expected length of stay less than 2 nights due to risk of adverse events, medical complexity and decompensation Pain Evaluation: Adequate Pain Control VTE Prophylaxis: Sub-Q Enoxaparin, SCDs Resuscitation Status: DNR/DNI:Do Not Resuscitate/Intubate Attending Statement The patient was seen and examined together with Dr. Oseguera on 08/13 and I agree with the history, exam and plan as outlined in the note above. Kaushal Oseguera DO August 13, 2016 20:06 Neo Trent MD August 13, 2016 20:38
[2016-08-13] MEDS ORDERED: LICO1POW2 MC (20:07)
[2016-08-13] MEDS ORDERED: PAPA1TAB11 PO (20:07)
[2016-08-13] MEDS ORDERED: [UNRECOGNIZED DRUG - OTHER] SL (20:09)
[2016-08-13] MEDS ORDERED: SENN-133 PO (20:09)
[2016-08-13] MEDS: Polyethylene Glycol (PEG) 17 Gm Powder PO SCH (21:53)
[2016-08-13] MEDS: 0.9% Sodium Chloride 1,000 ML IV SCH (21:55)
[2016-08-13 23:54] LABS: APPEARANCE,URINE CLEAR (CLEAR,HAZY); COLOR,URINE STRAW (YELLOW); OCCULT BLOOD,URINE TRACE (NEGATIVE); UROBILINOGEN,URINE NORMAL (NORMAL)
[2016-08-14] VITALS (8 sets, daily range): BP systolic 114–171; BP diastolic 62–76; PULSE 64–78; RESP 18–20; O2SAT 96–98
[2016-08-14] MEDS: Sodium Chloride LOK Flush 10 mL Syringe IVFLUSH SCH ×2 (00:09→08:30)
[2016-08-14 06:30] LABS: BASOPHILS % (AUTO) 0.5 % (0-3); EOSINOPHILS % (AUTO) 3.1 % (0-5); MONOCYTES % (AUTO) 10.5 % (4-12); Mean Corpuscular Volume 97.1 fL (81-100); NEUTROPHILS % (AUTO) 54.7 % (40-74); Platelet Count 244 bil/L (150-400)
[2016-08-14] MEDS: 0.9% Sodium Chloride 1,000 ML IV SCH ×2 (08:08→12:58)
[2016-08-14] MEDS: Polyethylene Glycol (PEG) 17 Gm Powder PO SCH (08:30)
[2016-08-14] MEDS ORDERED: Levothyroxine 100 mCg/5 mL Inj IV SCH (08:30)
--- NOTE | 2016-08-14 10:53 | PCM.PNMED ---
Subjective Date of Service August 14, 2016 Subjective pt had chest pain on and off overnight, was not severe, HD stable, awaits stress test, TTE today Exam Vital Signs Vital Sign - Last Date Time Temp Pulse Resp B/P Pulse Ox O2 Delivery O2 Flow Rate FiO2 08/14/16 08:00 64 08/14/16 05:25 36.6 18 129/67 97 Nasal Cannula 1.00 Intake and Output 08/13/16 08/13/16 08/14/16 Cumulative From/Thru 15:00 23:00 07:00 08/13/16 15:24 - 08/14/16 06:40 Intake Total 100 ml 1492 ml 1592 ml Output Total 1750 ml 1750 ml Balance 100 ml -258 ml -158 ml Intake Oral 100 ml 913 ml 1013 ml IV Total 579 ml 579 ml Output Urine Total 1750 ml 1750 ml # Bowel Movements 0 0 Exam NAD, comfortably laying down on the bed no JVD, MMM, no LAD RRR, nl s1, s2 no mrg CTAB, no w,c S,ND,NT,normoactive BS+ warm, no edema, pulses 2/2 IVs and Medications Medications Reviewed: Medications were reviewed in detail Lab and Diagnostics Result Diagram: 08/14/1653608/14/16 0537 X-Rays, CTs and MRIs PROCEDURE: X-RAY CHEST, TWO VIEWS ([id number]) IMPRESSION: No acute cardiopulmonary disease process. 12-lead ECG Sinus rhythm at rate of 72, left bundle branch block, no ST changes, unchanged from previous EKG, read by ED provider Assessment & Plan 81-year-old female with history of SVT status post ablations, left bundle branch block, hypertension, hypothyroidism, bladder cancer status post cystectomy, and lymphangiectasia who presented to the ED with intermittent chest discomfort that began gradually 1 week ago. acute active Acute Chest pain, POA, non-anginal, probably GI origin or MSK. Two trops neg. no st/tchg in EKG unlikely ACS. follow up TTE pharm stress test given hx of SVT, old LBBB telemetry for CV monitoring Hypothyroidism, POA, hypothyroid state on TFT, likely explains her fatigue -start LT4 12.5mcg iv qd, switch to oral upon d/c chronic, stable Essential hypertension, continue lisinopril5 Hyperlipidemia,not on statin, continue natural medications, LDL97 History of bladder cancer status post cystectomy with ileal conduit, Ostomy right lower quadrant, care per RN Constipation, Reports hard stool with decreased BMS in the past few weeks, Miralax daily CODE STATUS: After discussing thoroughly with patient she would like to be DO NOT RESUSCITATE/DO NOT INTUBATE Disposition: likely 1-2more days VTE Prophylaxis: Sub-Q Enoxaparin, SCDs Resuscitation Status: DNR/DNI:Do Not Resuscitate/Intubate Time spent 35 minutes Kaz Matthew MD August 14, 2016 10:53
--- NOTE | 2016-08-14 13:53 | DRSVH ---
PROCEDURE: 1 DAY PHARMACOLOGICAL STRESS TEST Rest and pharmacological stress myocardial perfusion SPECT with gated imaging and ejection fraction RADIOPHARMACEUTICAL: 10.74 mCi Tc-99m tetrafosmin IV at rest and 32.10 mCi Tc-99m tetrafosmin IV at peak effect of pharmacological stress. A [id number] was performed. INDICATIONS: Chest pain. TECHNIQUE: Radiopharmaceutical was injected at peak stress test, and also at rest. SPECT images wer e obtained. SPECT myocardial perfusion images were displayed in short axis, horizontal long axis, an d vertical long axis views. Gated images were reviewed using Balakam[employer] software. COMPARISON: None. CARDIAC STRESS: A pharmacologic stress test was performed under the supervision of an attending staff, using an infus ion of LexiScan (0.4 mg/5 mL). Hemodynamic data: There is normal blood pressure and heart rate response to pharmacologic stress. Symptoms: The patient denied anginal chest pain. Aminophylline: None. EKG: Baseline EKG demonstrated left bundle-branch block. Stress EKG demonstrated no diagnostic rubalcava es of ischemia. FINDINGS: Raw data: There is good myocardial uptake of radiotracer. No significant motion artifacts. Left ventricle function: Gated images demonstrate normal left ventricular wall thickening. No segme ntal wall motion abnormalities. No objective evidence of transient ischemic dilation. Left ventricl e stress end diastolic volume is 64 mL. Left ventricle stress ejection fraction is 86; normal range is above 45%. Myocardial perfusion: There is normal distribution of activity in the right and left ventricular kevin cardium. There is an apparent perfusion defect in the anterior wall which demonstrates complete hiwot lization in the prone position consistent with breast attenuation artifact. No fixed or reversible pe rfusion defects identified that would be consistent with scar or ischemia. IMPRESSION: 1. Normal myocardial perfusion study with no fixed or reversible perfusion defects. 2. Normal left ventricular function with no segmental wall motion abnormalities and normal stress LVE F of 86%. 3. Normal hemodynamic response to pharmacologic stress. PQRS ATTESTATIONS: Measure 322 - Is this imaging test primarily performed on a low-risk surgery patient for preoperative evaluation within 30 days preceding their low-risk non-cardiac surgery? Low-risk surgery is defined as cardiac or myocardial infarction less than 1%, including (but not limited to) endoscopic pr ocedures, superficial procedures, cataract surgery, and excisional breast surgery: Answer: No Measure 323 - Is this imaging test performed primarily for the monitoring of an asymptomatic patient who had percutaneous coronary intervention on the visit date or within 2 years of the visit date? An swer: No Measure 324 - Is this imaging test performed primarily for the initial detection and risk assessment on an asymptomatic, low coronary heart disease patient? Low CHD risk definition = clinicians should consider the maximum number of available patient factors used to estimate risk based on [place] (A TP III criteria), typically age, gender, diabetes, smoking status, and use of blood pressure medicati on, and integrate age appropriate estimates for missing elements, such as LDL or standard blood press ure. Answer: No Dictated by: Sirena Brar MD, PhD on 08/14/2016 at 13:41 Approved by: Sirena Brar MD, PhD on 08/14/2016 at 13:52
[2016-08-14] MEDS ORDERED: LEVO25TA2 PO (16:00)
--- NOTE | 2016-08-14 16:03 | PCM.DIMED ---
Discharge Instructions Date of Service August 14, 2016 Dates of Hospitalization August 13, 2016 at 20:12 Discharge Diagnosis Discharge Diagnosis Chest pain, likely GI origin. hypothyroid state Medication Instructions Please take synthyroid 25mcg daily in empty stomach Diet Low fat, Low Sodium, Heart Healthy Activity No restrictions Call your provider Shortness of breath, Chest pain Patient Instructions You were hospitalized with chest pain, underwent stress test, which showed normal result. Please note that your thyroid function was low, which could contribute to fatigue. thyroid hormone was repleted appropriately but has to continue and recheck with your doctor in 8weeks Follow-up Provider: Melia Gavin ND Follow-up with PCP in: 2 weeks Kaz Matthew MD August 14, 2016 16:02
--- NOTE | 2016-08-15 11:14 | PCM.DC.MED ---
Discharge Summary Date of Service August 14, 2016 Dates of Hospitalization Date of Hospital Admission August 13, 2016 at 20:12 Date of Discharge: August 14, 2016 Providers: Admitting Physician: Neo Trent MD Primary Care Physician: Melia Gavin ND Attending Physician: Neo Trent MD Diagnosis at Time of Discharge Diagnosis at Time of Discharge acute dx Chest pain, likely GI origin. hypothyroid state chronic, stable Essential hypertension, Hyperlipidemia, History of bladder cancer status post cystectomy with ileal conduit Constipation, Procedures XRay, CTs & MRIs PROCEDURE: X-RAY CHEST, TWO VIEWS ([id number]) IMPRESSION: No acute cardiopulmonary disease process. ECG 12 Lead Sinus rhythm at rate of 72, left bundle branch block, no ST changes, unchanged from previous EKG, read by ED provider Brief History HPI obtained by Pleasant 81-year-old female with history of SVT status post ablations, left bundle branch block, hypertension, hypothyroidism, bladder cancer status post cystectomy, and lymphangiectasia who presented to the ED with chest discomfort that began gradually 1 week ago. Location mid sternal, pressure like and mild intensity. She denies any triggers and reports associated jaw pain, palpitations, fatigue, and occasional shortness of breath. She reports she will get this chest pressure occasionally with deep inhalation, it will last a few minutes and then resolve. She denies any strenuous activity, denies any chest pain with yardwork, but reports occasional shortness of breath. She currently lives by herself at home and is somewhat sedentary. She denies any new medication changes, her PCP as KATHI Desai. She is currently on a naturopathic formulation of estrogen supplementation. She denies any recent illnesses,, fever, cough, or urinary symptoms. She endorses constipation. She is currently undergoing investigation with GI for lymphangiectasia. In the ER her vitals were temperature 36.2, pulse of 98, respiratory rate of 16 , initial blood pressure 187/91 which improved to the 150s systolic range, she was saturating at 98% room air. Initial CBC and CMP were unremarkable. Initial troponin was needed Initial EKG showed sinus rhythm with rate of 72 and a left bundle branch block, which is unchanged from previous EKG. Hospital Course 81-year-old female with history of SVT status post ablations, left bundle branch block, hypertension, hypothyroidism, bladder cancer status post cystectomy, and lymphangiectasia who presented to the ED with intermittent chest discomfort that began gradually 1 week ago. acute dx Acute Chest pain, pt underwent stress test given hx of SVT, old LBBB, which didn 't show any perfusion defect. pain was also non-anginal in nature, serial trops/ EKG didn't show ischemic chg, It's probably GI origin or MSK. Pain didn't recurr during hospitalization, deemed safe for d/c. TTE was done prior to d/c, pt was asked to follow up the result with PCP. Hypothyroidism, POA, hypothyroid state on TFT, likely explains her fatigue, pt was not on LT4 as she had erratic response in the past. However, given hypothyroid state, pt was started LT4 12.5mcg iv qd, 25mcg po upon d/c, pt was encouraged to follow up with PCP, check TFT in 6-8weeks. chronic, stable Essential hypertension, continued lisinopril5 Hyperlipidemia,not on statin, continued natural medications, LDL97 History of bladder cancer status post cystectomy with ileal conduit, Ostomy right lower quadrant, care per RN Constipation, Reports hard stool with decreased BMS in the past few weeks, Miralax daily CODE STATUS: After discussing thoroughly with patient she would like to be DO NOT RESUSCITATE/DO NOT INTUBATE Exam Vital Signs (Last) Date Time Temp Pulse Resp B/P Pulse Ox O2 Delivery O2 Flow Rate FiO2 08/14/16 14:46 36.6 69 20 121/63 96 Room Air 08/14/16 05:25 1.00 Exam NAD, comfortably laying down on the bed no JVD, MMM, no LAD RRR, nl s1, s2 no mrg CTAB, no w,c S,ND,NT,normoactive BS+ warm, no edema, pulses 2/2 Test 08/13/16 16:25 08/13/16 23:33 08/14/16 01:38 08/14/16 05:37 Hold Purple Top Tube Received (Received) Prothrombin Time 9.6sec (8.1-12.5) Prothromb Time International Ratio 0.90ratio D-Dimer < 0.50mg/L FEU (<0.50) Hold Blue Top Tube Received (Received) Magnesium Level 2.3mg/dL (1.6-2.6) Total Bilirubin 0.5mg/dL (0.0-1.2) Aspartate Amino Transf (AST/SGOT) 19U/L (0-50) Alanine Aminotransferase (ALT/SGPT) 16U/L (0-32) Alkaline Phosphatase 71U/L (25-165) Total Protein 7.2g/dL (6.4-8.4) Albumin 4.2g/dL (3.4-5.0) Lipase 29U/L (13-60) Thyroid Stimulating Hormone (TSH) 6.290uIU/mL (0.450-4.500) Free Thyroxine 0.74ng/dL (0.82-1.77) Hold Closplint Top Tube Received (Received) Urine Color Straw (YELLOW) Urine Appearance Clear (CLEAR,HAZY) Urine pH 7.0 (5.0-8.0) Urine Specific [place] 1.010 (1.003-1.035) Urine Protein Negativemg/dL (NEG,TRACE) Urine Glucose (UA) Negativemg/dL (NEGATIVE) Urine Ketones Negativemg/dL (NEGATIVE) Urine Occult Blood Trace (NEGATIVE) Urine Nitrite Positive (NEGATIVE) Urine Bilirubin Negative (NEGATIVE) Urine Urobilinogen Normalmg/dL (NORMAL) Urine Leukocyte Esterase Small (NEGATIVE) Urine RBC 3-10/hpf (0-2) Urine WBC 0-5/hpf (0-5) Urine Epithelial Cells Occasional/hpf (NONE-MOD) Urine Crystals None seen (NONE SEEN) Urine Bacteria Moderate/hpf (NONE-FEW) Urine Hyaline Casts None/lpf (NONE) Urine Granular Casts None seen (NONE SEEN) Urine Waxy Casts None seen (NONE SEEN) Urine Red Blood Cell Casts None seen (NONE SEEN) Urine White Blood Cell Casts None seen (NONE SEEN) Urine Mucus Present (None Seen) Urine Trichomonas None seen (NONE SEEN) Urine Yeast None (NONE SEEN) Urine Culture Reflexed Indicated Troponin T 0.010ug/L (0.0-0.011) White Blood Count 5.5th/mm3 (3.8-10.1) Red Blood Count 3.50mil/mm3 (3.90-5.20) Hemoglobin 11.2g/dL (12.0-15.6) Hematocrit 34.0% (35.0-46.0) Mean Corpuscular Volume 97.1fL (81-100) Mean Corpuscular Hemoglobin 32.0pg (27.0-35.0) Mean Corpuscular Hemoglobin Concent 32.9% (32.0-37.0) Red Cell Distribution Width 13.4% (12.3-15.4) Platelet Count 244bil/L (150-400) Neutrophils (%) (Auto) 54.7% (40-74) Lymphocytes (%) (Auto) 31.0% (14-46) Monocytes (%) (Auto) 10.5% (4-12) Eosinophils (%) (Auto) 3.1% (0-5) Basophils (%) (Auto) 0.5% (0-3) Sodium Level 142mEq/L (134-144) Potassium Level 4.1mEq/L (3.5-5.2) Chloride Level 106mEq/L (97-108) Carbon Dioxide Level 24mmol/L (18-29) Blood Urea Nitrogen 14mg/dL (8-27) Creatinine 0.65mg/dL (0.57-1.00) Estimat Glomerular Filtration Rate 126mL/min (>59) Glucose Level 88mg/dL (60-99) Calcium Level 8.7mg/dL (8.5-10.1) Triglycerides Level 151mg/dL (0-149) Cholesterol Level 187mg/dL (100-199) LDL Cholesterol, Calculated 97.800mg/dL (0-99) VLDL Cholesterol 30.200mg/dL HDL Cholesterol 59mg/dL (>39) Cholesterol/HDL Ratio 3.17 (0.0-4.4) Discharge Medications Discharge Medications ([estriol/estrodiol]) 0.5 ML EXT DAILY (Reported) ([nattokinase]) 236 MG PO DAILY (Reported) ([phytoprofen]) 2 CAPSULE PO DAILY (Reported) ([celery seed extract]) 1 CAPSULE PO DAILY (Reported) Ascorbic Acid (Vitamin C) 1,000 Mg Tab.chew 1,000 MG PO DAILY (Reported) Bacillus Coagulans (Probiotic) 10 Billion Cell Capsule.dr 1 EACH PO DAILY ( Reported) Bioflavonoids, [place] (Bioflavonoid [place]) 1,000 Gm Powder 700 MG PO DAILY ( Reported) Calcium Carbonate (Calcium) 600 Mg Tablet 750 MG PO DAILY (Reported) Cholecalciferol (Vitamin D3) (Vitamin D3) 2,000 Unit Capsule 2,000 UNIT PO DAILY (Reported) Cholecalciferol (Vitamin D3) (Vitamin D3) 4,000 Unit Capsule 4,000 UNIT PO DAILY (Reported) Chromium Picolinate (Chromium Picolinate) 200 Mcg Tablet 200 MCG PO DAILY ( Reported) Cyanocobalamin (Vitamin B-12) (Vitamin B-12) 1,000 Mcg Tablet 1,000 MCG PO Q2DAY (Reported) Estriol (Estriol) 100 Gm Powder 1,000 GM EXT 2xweekly (Reported) compound in cream Folic Acid (Folic Acid) 0.4 Mg Tablet 0.4 MG PO Q2DAY (Reported) Levothyroxine (Synthroid) 25 Mcg Tablet 25 MCG PO DAILY Prescribed by: KAZ KAPLAN MD Licorice,Deglycyrrhizinated (Deglycyrrhizinated Licorice) 1 Gm Powder 1-3 GM MC DAILY (Reported) Multivitamin (Once Daily) 1 Each Tablet 1 EACH PO DAILY (Reported) Red Yeast Rice (Red Yeast Rice) 600 Mg Capsule 600 MG PO BID (Reported) Thyroid,Pork (Thyroid) 25 Gm Powder 75 MG PO DAILY (Reported) Ubidecarenone/Vit E Acetate (Co Q-10 100 mg Softgel) 1 Each Capsule 1 EACH PO DAILY (Reported) As needed ([gasalia]) 2 TAB SL DIRECTED PRN PRN gas/bloating (Reported) Acetaminophen (Acetaminophen) 325 Mg Capsule 325 MG PO Q4H PRN PRN For Pain ( Reported) Benzoca/Res/Aloe/Vit E/Vit A&D (Vagisil Cream) 28 Gm Cream..g. 1 APPLIC EXT DIRECTED PRN PRN For Itching (Reported) Papaya (Papaya Enzyme) 1 Each Tab.chew 1-3 EACH PO DAILY PRN PRN For Dyspepsia or Heartburn (Reported) Sennosides (Senna) 8.6 Mg Tablet 8.6 MG PO DAILY PRN PRN For Constipation ( Reported) Additional med instructions Please take synthyroid 25mcg daily in empty stomach Followup Plan Disposition: home Discharge Diet: Low fat, Low Sodium, Heart Healthy Discharge Activity: No restrictions Patient Instructions You were hospitalized with chest pain, underwent stress test, which showed normal result. Please note that your thyroid function was low, which could contribute to fatigue. thyroid hormone was repleted appropriately but has to continue and recheck with your doctor in 8weeks Follow-up Provider: Melia Gavin ND Follow-up with PCP in: 2 weeks Time spent 65min Kaz Kaplan MD August 14, 2016 22:06
--- NOTE | 2016-08-16 21:52 | DRSVH ---
[facility] [address] [place] [address] Echocardiogram Report Name: PARVIN GOVEA FStudy Date: 08/14/2016 Height: 64.5 in Hospital Exam Location: [facility] Weight: 187 lb Gender: Female BSA: 1.9 m2 : 1935 Age: 81 yrs BP: 129/67 mmHg Reason For Study: Chest pain Ordering Physician: Performed By: Antwan Doran Referring Physician: PAMELA ROWE Interpretation Summary Normal sinus rhythm. Normal LV size; mild concentric LVH. Normal wall motion and LV systolic function. EF is 60-65%. No significant valvular abnormalities. Normal chamber sizes. No prior study available for comparison. Procedure: A two-dimensional transthoracic echocardiogram with color flow and Doppler was performed. The study quality was technically difficult. A contrast injection of Definity was performed to improve assessment of LV function. Comparison is made with the echocardiogram of 02/07/04. The heart rate ranged between 55-67 bpm during the study. The patient had a bundle branch block rhythm during the exam. Left Ventricle: The left ventricle is normal in size. There is mild concentric left ventricular hypertrophy. The ejection fraction is estimated to be 60-65%. Septal motion is consistent with conduction abnormality. Right Ventricle: The right ventricle grossly appears normal in size with probable normal systolic function. Atria: The left atrium grossly appears normal in size. Right atrial size is normal. The interatrial septum is intact with no evidence for an atrial septal defect. Mitral Valve: The mitral valve is normal. There is trace mitral regurgitation. Aortic Valve: The aortic valve is grossly normal. No aortic regurgitation is present. Tricuspid Valve: There is mild tricuspid regurgitation. The right ventricular systolic pressure is estimated at 27 mmHg assuming a right atrial pressure of 3 mm Hg. Pulmonic Valve: The pulmonic valve is not well seen, but is grossly normal. There is a trace or physiologic amount of pulmonic regurgitation. Great Vessels: The aortic root is normal size. The ascending aorta is mildly enlarged. The pulmonary artery is normal size. The IVC is of normal diameter and collapses greater than 50% with a sniff. This suggests a low right atrial pressure of 3 mm Hg. Pericardium/ Pleura There is no pericardial effusion. There is no pleural effusion. MMode/2D Measurements & Calculations LVIDd: 4.3 cm RA long axis LVOT diam: 1.9 cm LVIDs: 2.6 cm LA A4 area: 17.9 cm Ao root diam FS: 40.4 % LA length (vol) RA area IVSd: 0.98 cm asc Aorta Diam LVPWd: 1.1 cm IVC diam: 2.1 cm : 12.5 cm RA vol Ao Arch Diam (Prox : 27.8 ml Trans): 2.8 cm RA : 14.5 mm2 LV cameron. diameter/BSA LV sys. diameter/BSA TAPSE: 2.6 cm (cm/m^2): 2.3 (cm/m^2): 1.3 Doppler Measurements & Calculations Ao V2 max MV E max hector MV E/A: 0.72 TR max hector : 172.4 cm/sec : 86.9 cm/sec Med Peak E' Hector : 242.9 cm/sec Ao max P.9 mmHg MV A max hector TR max PG Ao mean P.5 mmHg : 120.5 cm/sec E/E' med: 15.2 : 23.6 mmHg LVOT Max Hector Lat Peak E' Hector PA V2 max : 153.3 cm/sec : 93.0 cm/sec ESTUARDO(I,D): 2.7 cm E/E' lat: 15.8 PA mean PG sev ratio: 0.96 E/e' average : 1.7 mmHg MV dec time: 0.31 sec Ao V2 mean LV V1 max PG PA V2 mean : 109.0 cm/sec : 60.9 cm/sec Ao V2 VTI: 36.1 cmLV V1 VTI PA pr(Accel) ESTUARDO(V,D): 2.5 cm2 : 34.6 cm : 44.3 mmHg ESTUARDO indexed to BSA (cm^2/m^2): 1.4 Reading Physician:09:51 PM
== END 2016-08-14 19:03 | disposition home or self-care (01) ==
LOC: SED 15:19 → MPC 20:12
PROVIDERS: ADMIT Hospitalist; ATTEND Hospitalist
DX: R07.9 Chest pain, unspecified (principal); I47.1 Supraventricular tachycardia; I44.7 Left bundle-branch block, unspecified; E03.9 Hypothyroidism, unspecified; I10 Essential (primary) hypertension; E78.5 Hyperlipidemia, unspecified; Z85.51 Personal history of malignant neoplasm of bladder; K59.00 Constipation, unspecified; K21.9 Gastro-esophageal reflux disease without esophagitis; K29.60 Other gastritis without bleeding; I89.0 Lymphedema, not elsewhere classified; G43.B0 Ophthalmoplegic migraine, not intractable; M19.90 Unspecified osteoarthritis, unspecified site; M54.9 Dorsalgia, unspecified; K26.9 Duodenal ulcer, unspecified as acute or chronic, without hemorrhage or perforation; K52.9 Noninfective gastroenteritis and colitis, unspecified; Z87.891 Personal history of nicotine dependence; Z93.6 Other artificial openings of urinary tract status; Z66 Do not resuscitate
CPT/HCPCS: 36415; 71020; 78452; 80048; 80053; 80061; 81000; 83690; 83735; 84439; 84443; 84480; 84484; 85025; 85378; 85610; 87077; 87086; 87088; 87186; 93005; 93017; 96374; 99285; A9502; C8929; G0378; J1650; J2785; J7030; Q9957

== ENCOUNTER 2016-09-10 09:02 | Day surgery (SDC) | payer MEDICARE, OTHER ==
[~2016-09-10] VITALS: Ht 162.6 cm; Wt 83.1 kg
[~2016-09-10 09:02] MED LIST changes: +ACET325C PO; -ASC500 PO; +ASCO100089 PO; -B.AN1CAP PO; +BENZ28CR2 EXT; -BENZ28CR2 TP; -CALC-846 PO; +CALC600T12 PO; +CELERY SEED EXTRACT PO; +CHOL200047 PO; +CHOL40003 PO; +CHRO200T2 PO; -CHRO400T10 PO; +CYAN10008 PO; -CYAN500T PO; -ERGO400C PO; +ESTRIOL EXT; +ESTRODIOL EXT; +LEVO25TA2 PO; +LICO1POW2 MC; +Lactated Ringer's 1,000 ML IV ONE; -MULT-64 PO; +MULT-666 PO; -PAPA100T PO; +PAPA1TAB11 PO; +RED600CA2 PO; -RED600TA PO; +SENN-133 PO; -UBID100T7 PO; +UBID1CAP52 PO; -[UNRECOGNIZED DRUG - CODE]; +[UNRECOGNIZED DRUG - CODE] PO; -[UNRECOGNIZED DRUG - CODE] PO; +[UNRECOGNIZED DRUG - OTHER] PO; -[UNRECOGNIZED DRUG - OTHER] PO; -[UNRECOGNIZED DRUG - OTHER] PO; -[UNRECOGNIZED DRUG - OTHER] PO; -[UNRECOGNIZED DRUG - OTHER] PO; +[UNRECOGNIZED DRUG - OTHER] SL; +nattokinase PO
[2016-09-10] MEDS ORDERED: Propofol 10,000 mCg/mL 20 mL Inj ONE (09:03)
[2016-09-10 09:48] VITALS: BP 131/56; PULSE 70; RESP 14; O2SAT 99
[2016-09-10] MEDS ORDERED: Lactated Ringer's 1,000 ML IV SCH (10:03)
--- NOTE | 2016-09-10 10:03 | PCM.HPANE ---
Patient Data Surgeon Admitting Provider: Attending Provider:Nash Romero MD Primary Care Physician:Melia Gavin ND Other Provider:Sheilaoc,Janelle Anesthesia Reason for Visit Constipation Ht/WT & BMI Height (Feet): 5 Height (Inches): 4 Weight (Kilograms): 83.091 Body Mass Index 31.00 Allergies Coded Allergies: Influenza Virus Vaccines (Verified Allergy, Severe, SEVERE ARM SWELLING LASTING 1 MO., 08/13/16) Nitrate (Verified Allergy, Severe, NAUSEA, RASH, SOB, 08/13/16) barium sulfate (Verified Allergy, Severe, LIP SWELLS, 08/13/16) levofloxacin (Verified Allergy, Severe, c-dif, tendonitis, 08/13/16) nitrofurantoin (Verified Allergy, Severe, NAUSEA, RASH, SOB, 08/13/16) pantoprazole sodium (Verified Allergy, Severe, Nausea, abdominal pain, rash, dizziness, chills, 08/13/16) cimetidine (Verified Allergy, Intermediate, racing heart, nausea, 08/13/16) diltiazem (Verified Allergy, Intermediate, 08/13/16) doxycycline (Verified Allergy, Intermediate, Nausea, palpitations, abdominal pain, chills, 08/13/16) estradiol (Verified Allergy, Intermediate, local reaction, 08/13/16) lovastatin (Verified Allergy, Intermediate, dizziness, 08/13/16) oxymetazoline HCl (Verified Allergy, Intermediate, races heart, 08/13/16) oxytetracycline (Verified Allergy, Intermediate, worsened lesion, 08/13/16) pseudoephedrine sulfate (Verified Allergy, Intermediate, races heart, ) ranitidine (Verified Allergy, Intermediate, nausea, racing heart, 08/13/16) simvastatin (Verified Allergy, Intermediate, dizziness, diarrhea, weakness , sweating, chills, 08/13/16) tolterodine (Verified Allergy, Intermediate, blurred vision, 08/13/16) Penicillins (Verified Allergy, Mild, 1950's anaphylaxis, able to tolerate augmentin, 08/13/16) Cephalosporins (Verified Allergy, Unknown, can take cefalexin, 08/13/16) palpitations Quinolones (Verified Allergy, Unknown, WAS TOLD TO STOP TAKING, 08/13/16) Sulfa (Sulfonamide Antibiotics) (Verified Allergy, Unknown, 08/13/16) amoxicillin (Verified Allergy, Unknown, Nausea,Vomiting,Diarrhea, 08/13/16) azithromycin (Verified Allergy, Unknown, palpitations, h/a, nausea, weakness, 08/13/16) ciprofloxacin (Verified Allergy, Unknown, Rash, 08/13/16) fenofibrate (Verified Allergy, Unknown, Dizziness, 08/13/16) niacin (Verified Allergy, Unknown, Dizziness, diarrhea, sweating, chills, 08/13/16) omeprazole (Verified Allergy, Unknown, Nausea, racing heart, 08/13/16) oxymetazoline (Verified Allergy, Unknown, racing heart, 08/13/16) tetracycline (Verified Allergy, Unknown, WAS TOLD TO STOP TAKING DOXY, ) Estrogens (Verified Adverse Reaction, Mild, PAIN IN TEMPLES, 08/13/16) erythromycin ethylsuccinate (Verified Adverse Reaction, Mild, SEV. GI UPSET, 08/13/16) hydrocodone (Verified Adverse Reaction, Mild, SEV. NAUSEA AND DIZZINESS, ) ibuprofen (Verified Adverse Reaction, Mild, RAPID HR, 08/13/16) lansoprazole (Verified Adverse Reaction, Mild, SEV. DIARRHEA, 08/13/16) oxycodone (Verified Adverse Reaction, Mild, SEV. NAUSEA AND DIZZINESS, 08/13) sucralfate (Verified Adverse Reaction, Mild, RAPID HEART, 08/13/16) metronidazole (Verified Adverse Reaction, Unknown, DIARRHEA AND SEVERE RUBI , 08/13/16) DIARRHEA & SEVERE HEADACHE minocycline (Verified Adverse Reaction, Unknown, tinnitus, nightmares, 08/13) Uncoded Allergies: CIMETIDINE (Generic Allergy) (Allergy, Unknown, Y, 11/21/04) NAUSEA/RACING HEART FAMOTIDINE (Generic Allergy) (Allergy, Unknown, Y, 11/21/04) H-2 ANTAGONISTS (Ingr Allergy) (Allergy, Unknown, Y, 11/21/04) LATEX (Ingr Allergy) (Allergy, Unknown, Y, 11/21/04) SULFA (Allergy, Unknown, WAS TOLD TO STOP TAKING, 02/05/09) TO MANY TO LIST (Allergy, Unknown, 11/21/04) Past Anesthesia History Anesthesia History: Positive for:: Fam Anesthesia Reaction (SISTERS AND MOTHER GET VERY ILL), Denies:: Abnormal Airway, Anesthesia Reactions, Difficult Intubation, Fam Malignant Hypertherm, Malignant Hyperthermia Diabetes History Hx Diabetes?: No MRSA MRSA: No Medications Active Scripts Levothyroxine (Synthroid)25 Mcg [id number] Mcg PO DAILY 30 Days Ref 0 Prov:Kaz Matthew MD 08/14/16 Reported Medications [gasalia] No Conflict Check2 Tab SL DIRECTED PRN gas/bloating 08/13/16 Sennosides (Senna)8.6 Mg Tablet8.6 Mg PO DAILY PRN For Constipation 08/13/16 Papaya (Papaya Enzyme)1 Each Tab.chew1-3 Each PO DAILY PRN For Dyspepsia or Heartburn 08/13/16 Licorice,Deglycyrrhizinated (Deglycyrrhizinated Licorice)1 Gm Powder1-3 Gm MC DAILY 08/13/16 Acetaminophen 325 Mg Eanolko401 Mg PO Q4H PRN For Pain 08/13/16 Bioflavonoids, [place] (Bioflavonoid [place])1,000 Gm Vwkyed996 Mg PO DAILY 08/13/16 [celery seed extract] No Conflict Check1 Capsule PO DAILY 08/13/16 [phytoprofen] No Conflict Check2 Capsule PO DAILY 08/13/16 Red Yeast Rice 600 Mg Nmndmve612 Mg PO BID 08/13/16 Folic Acid 0.4 Mg Tablet0.4 Mg PO Q2DAY 08/13/16 Chromium Picolinate 200 Mcg Cwyulh205 Mcg PO DAILY 08/13/16 Multivitamin (Once Daily)1 Each Tablet1 Each PO DAILY 08/13/16 Cholecalciferol (Vitamin D3) (Vitamin D3)4,000 Unit Capsule4,000 Unit PO DAILY 08/13/16 Cholecalciferol (Vitamin D3) (Vitamin D3)2,000 Unit Capsule2,000 Unit PO DAILY 08/13/16 Calcium Carbonate (Calcium)600 Mg Poujoj379 Mg PO DAILY 08/13/16 [nattokinase] No Conflict Muqds326 Mg PO DAILY 08/13/16 Ascorbic Acid (Vitamin C)1,000 Mg Tab.chew1,000 Mg PO DAILY Ref 0 08/13/16 Cyanocobalamin (Vitamin B-12) (Vitamin B-12)1,000 Mcg Tablet1,000 Mcg PO Q2DAY 08/13/16 Ubidecarenone/Vit E Acetate (Co Q-10 100 mg Softgel)1 Each Capsule1 Each PO DAILY 08/13/16 Benzoca/Res/Aloe/Vit E/Vit A&D (Vagisil Cream)28 Gm Cream..g.1 Applic EXT DIRECTED PRN For Itching 08/13/16 [estriol/estrodiol] No Conflict Check0.5 Ml EXT DAILY 08/13/16 Estriol 100 Gm Powder1,000 Gm EXT 2xweekly compound in cream 06/04/16 Bacillus Coagulans (Probiotic)10 Billion Cell Capsule.dr1 Each PO DAILY 06/02/16 Discontinued Reported Medications Thyroid,Pork (Thyroid)25 Gm Owiwif11 Mg PO DAILY 08/13/16 History History of ENT Problems?: Yes HEENT History: Positive for:: Cataracts Dysphagia Sinus Problem (frequent sore nose) Denies:: Abnormal Airway Difficult Intubation Hearing Problem Denture Type: Full- Upper Teeth Condition: Within Normal Limits Hx of Heart Problems?: Yes Cardiovascular History: Positive for:: Chest Pain (ablation x2) Edema (during day) Heart Murmur Hypertension (resolved) Denies:: AICD Atrial Fibrillation Cardiac Surgery Congestive Heart Failure Irregular Heartbeat (palpitations) Pacemaker Thrombophlebitis Valvular Heart Disease Hx of Respiratory Problem?: Yes Respiratory History: Positive for:: Pneumonia (1989) Denies:: Asthma COPD Chest Surgery Cough Dyspnea Emphysema Hemoptysis Tuberculosis Hx Neurologic Problems?: Yes Neurological History: Positive for:: Dizziness Headaches (ocular migraines) Denies:: Alzheimer's Disease CVA Dementia Parkinson's Disease Seizures Hx of GI Problems?: Yes Other GI Pertinent History: bloating and flatus Hx of Problems?: Yes Genitourinary History: Positive for:: Urinary Tract Infection (resolved) Denies:: HX of Hemodialysis Kidney Stones HX of Peritoneal Dialysis: No Female Hx: Denies:: Currently Endometriosis Pelvic Inflammatory Problems with Breasts? Hx Musculoskeletal Problems?: No Musculoskeletal History: Positive for:: Back Injury (chronic back) Joint Replacement (left knee) Denies:: Musculoskeletal Trauma Hx of Psycho/Social Problems?: No Psycho Social History: Denies:: Anxiety Bipolar Disorder Hx Depression Hx Surgeries?: Yes (bladder removal, knees, abd. hyst, bursa removal right shoulder, hernia rep) Hx Any Other Health Problems?: Yes Other History: Positive for:: Cancer (bladder with urostomy) Hospitalization (CP, LBB, SVT) Thyroid Disease (ablated) Denies:: Endocrine Disease History Blood Transfusions: Positive for:: Blood Transfusions Denies:: Blood Transfuse Reaction Hx Diabetes: No Hx Alcohol Use: NoHx Substance Use: No Smoking Status: Former Smoker Have You Smoked inLast 12 mo: No Stop/Bang Treated for Sleep Apnea?: No Do You Have a CPAP Machine?: No S-Snoring: Do You Snore Loudly: No T-Tired: feel tired, fatigued: No O-Obsered: Observed not breath: No P-Blood Pressure: treated: Yes B- Body Mass Index > 35 kg/m2: Yes A- Age over 50: Yes N- Neck Large Circumference: No G- Gender Male: No DANNY Total Score: 3 DANNY Risk Assessment: Low Risk, <3 Yes Risk Assessment Category Category 1A: Patient has history of documented sleep apnea, and HAS NOT received any narcotic, sedative or anesthesia administration during this stay. Category 1B: Patient has history of documented sleep apnea, and HAS received any narcotic , sedative or anesthesia administration during this stay Category 2: Patient has SUSPECTED Obstructive Sleep Apnea, and HAS received any narcotic , sedative or anesthesia administration during this stay. Category 3: Patient has SUSPECTED Obstructive Sleep Apnea and HAS NOT received narcotic, sedative or anesthesia administration during this stay. Category 4: Outpatient in Procedural Areas with known sleep apnea or who screen positive for High Risk via the STOP/BANG questionnaire. Exam Exam Vital Signs Vital Signs Date Time Temp Pulse Resp B/P Pulse Ox O2 Delivery O2 Flow Rate FiO2 09/10/16 09:48 36.6 70 14 131/56 99 Room Air General Appearance: Oriented X3 HEENT/AIRWAY: MP 2 Lungs: Normal Air Movement Heart: Regular Rate/Rhythm Meds/Labs/Diagnostics Admission Meds Current Medications Lactated Ringer's (Lr) 1,000 ml @ 10 mls/hr Q24H ONCE IV Last administered on 09/10/16t 09:53; Start 09/10/16 at 06:00; Stop 09/11/16 at 05:59 Plan Impression Patient chart reviewed, patient interviewed and anesthestic plan with risks, benefits, and alternatives discussed, and informed consent obtained. ASA Physical Status: ASA3 Severe Disease Anesthetic Plan: MAC Bene/Risks/Altern/Consents: Yes HP Complete Prior to Induction: Yes Pete Shaver MD Sep 10, 2016 10:03
[2016-09-10] MEDS ORDERED: MetoCLOpramide 5 mg/mL 2 mL Inj IVPUSH PRN (10:05)
[2016-09-10] MEDS ORDERED: Ondansetron 2 mg/mL 2 mL Inj IVPUSH PRN (10:05)
--- NOTE | 2016-09-10 10:27 | PCM.ENDCOL ---
Colonoscopy Date of Service: Sep 10, 2016 Physician Nash Romero MD Pre Procedure Diagnosis: Change in bowel patterns Post Procedure Dx & Findings: Diverticuli hemorrhoids and unable to get to the cecum Procedure Colonoscopy PROCEDURE IN DETAIL: Prep adequate After unremarkable rectal examination the Olympus video colonoscope was inserted patient's anal canal and was advanced proximal sigmoid colon. At that point, significant scarring noted. Diverticuli noted. These were relatively small and several numbers. The scope would not advance. She had multiple surgeries including hysterectomy hernia repair bladder resection. Scope was withdrawn systematically. Visualized colonic mucosa showed healthy shiny mucosa with normal healthy-appearing vasculature. In the rectum retroflexion was done which showed hemorrhoids. Anal canal was inspected carefully on the way out and hemorrhoids noted. Impression Diverticuliti Unable to get the cecum Hemorrhoids Recommendation Double contrast barium enema Presedation Assessment Risks and Benefits Informed consent was obtained from the patient after all risks and benefits including but not limited to drug reaction, infection, pain, bleeding, perforation, as well as alternatives were discussed. Patient monitoring Continuous pulse oximetry, cardiac monitoring, blood pressure monitoring, IV access, and oxygen at 2L per nasal cannula. Complications There were no periprocedural complications identified. Post Procedure Plan Post Procedure Recommendations 1. Restrict activities today. 2. Resume normal activities in the morning. 3. Resume medications. 4. Patient informed of normal post procedure side effects as bloating, drowsiness, blood streaking in the stool. 5. average risk CRCS. If colon polyps come back as: -Hyperplastic- can repeat colonoscopy in 10 years -Tubular adenoma- repeat colonoscopy in 5 years -Tubulovillous/villous adenoma- repeat colonoscopy in 3 years -If any dysplasia- return to clinic as soon as possible 6. Please don't hesitate to call me with any questions. Nash Romero MD Sep 10, 2016 10:27
[2016-09-10 10:30] VITALS: BP 89/45; PULSE 59; RESP 16; O2SAT 96
--- NOTE | 2016-09-10 10:37 | PCM.ANEP1 ---
Post Anesthesia PACU Phase 1 Assessment Vital Signs Vital Signs Date Time Temp Pulse Resp B/P Pulse Ox O2 Delivery O2 Flow Rate FiO2 09/10/16 10:30 35.9 59 16 89/45 96 Room Air 09/10/16 09:48 36.6 70 14 131/56 99 Room Air Anesthetic Administered: MAC Level of Alertness: Awake, talking Pain: No Nausea or Vomiting: No CV Function & Hydration Stable: Yes Airway Device: Lungs: Normal Air Movement PACU Phase 2 Assessment Patient Instructions Provided: N/A Pete Shaver MD Sep 10, 2016 10:37
[2016-09-10 10:40] VITALS: BP 109/36; PULSE 58; RESP 16; O2SAT 96
[2016-09-10 10:50] VITALS: BP 118/38; PULSE 57; RESP 16; O2SAT 98
[2016-09-10 11:00] VITALS: BP 149/51; PULSE 64; RESP 16; O2SAT 100
== END 2016-09-10 23:59 | disposition home or self-care (01) ==
LOC: END 09:02
PROVIDERS: ATTEND Internal Medicine
DX: K57.30 Diverticulosis of large intestine without perforation or abscess without bleeding (principal); K64.9 Unspecified hemorrhoids; R19.4 Change in bowel habit; I10 Essential (primary) hypertension; E78.5 Hyperlipidemia, unspecified; I73.9 Peripheral vascular disease, unspecified; K21.9 Gastro-esophageal reflux disease without esophagitis; E05.90 Thyrotoxicosis, unspecified without thyrotoxic crisis or storm; H81.09 Meniere's disease, unspecified ear; Z79.890 Hormone replacement therapy; Z87.891 Personal history of nicotine dependence; Z96.652 Presence of left artificial knee joint; Z90.710 Acquired absence of both cervix and uterus
CPT/HCPCS: 45378; J7120